=== PATIENT | female | born 1945 | race Caucasian/White ===

== ENCOUNTER → 2022-08-06 13:33 | Outpatient (CLI) | payer MEDICARE, OTHER, SELFPAY ==
--- NOTE | 2022-08-06 | DI.ECHO.S_ITS ---
[facility] +---------+ : : [address] : : : : [id number] : : : : Phone: [phone]+ Echocardiogram Report + + :Name: YAYA LANDRY Study Date: 08/06/2022 Height: 67 in : :[facility] ReadingLocation: Weight: 148 lb : : Gender: Female BSA: 1.8 m2 : :: 1945 Age: 76 yrs BP: 106/66 mmHg: :Reason For Study: DYSPNEA : :Ordering Physician: NEHA, : :KRYSTAL Performed By: Dulce Ley : :Referring: KRYSTAL SOLOMON : + + Interpretation Summary The left ventricle is normal in size and wall thickness. The ejection fraction is estimated to be 55-60%. In some of the apical views, there appears to be subtle hypokinesis of mid to distal anterior lateral wall. The right ventricle is normal in size and function. There is mild mitral regurgitation. There is mild tricuspid regurgitation. The atrial septum is aneurysmal. There is no Doppler evidence for an interatrial shunt. There is mild luminal irregularity and echogenicity in the abdominal aorta, suggestive of aortic atherosclerotic disease. Mild atherosclerotic plaque(s) in the aortic arch. Procedure: A two-dimensional transthoracic echocardiogram with color flow and Doppler was performed. The study quality was technically adequate. There is no prior echocardiogram noted for this patient. The patient was in sinus rhythm with heart rates between 57-65 bpm during the exam. Left Ventricle: The left ventricle is normal in size and wall thickness. There is no thrombus. The ejection fraction is estimated to be 55-60%. In some of the apical views, there appears to be subtle hypokinesis of mid to distal anterior lateral wall. MV E/A: 1.2 Med Peak E' Franco: 6.5 cm/sec E/E' med: 12.8. Right Ventricle: The right ventricle is normal in size and function. Atria: The left atrial size is normal. Right atrial size is normal. There is no Doppler evidence for an interatrial shunt. The atrial septum is aneurysmal. Mitral Valve: The mitral valve is normal. There is mild mitral regurgitation. Aortic Valve: The aortic valve is trileaflet. The aortic valve opens well. The aortic valve is slightly calcified. There is no aortic valve stenosis. No aortic regurgitation is present. Tricuspid Valve: The tricuspid valve is normal. There is mild tricuspid regurgitation. The right ventricular systolic pressure is estimated to be at least 26.3 mmHg based on an estimated right atrial pressure of 8 mm Hg. Pulmonic Valve: The pulmonic valve is not well seen, but is grossly normal. There is mild pulmonic regurgitation. Great Vessels: The aortic root is normal size. The dimensions of the ascending aorta are normal. There is mild luminal irregularity and echogenicity in the abdominal aorta, suggestive of aortic atherosclerotic disease. Mild atherosclerotic plaque(s) in the aortic arch. The IVC is of normal diameter and collapses less than 50% with a sniff. This suggests a right atrial pressure of 8 mm Hg. Pericardium/ Pleura There is no pericardial effusion. There is no pleural effusion. MMode/2D Measurements & Calculations LVIDd: 4.3 cm LVOT diam: 2.1 cm LVIDs: 2.7 cm Ao root diam: 3.0 cm FS: 38.7 % asc Aorta Diam: 3.2 cm IVSd: 0.74 cm Ao Arch Diam (Prox Trans): 2.5 cm LVPWd: 0.70 cm LV almonte. diameter/BSA (cm/m^2): 2.4 LV sys. diameter/BSA (cm/m^2): 1.5 LA A2 area: 16.7 cm2 RA long axis: 4.6 cm LA A4 area: 15.4 cm2 RA area: 12.7 cm2 LA length (vol): 5.1 cm RA vol: 29.9 ml LA vol: 42.3 ml RA : 16.8 ml/m2 LA vol index: 23.8 ml/m2 IVC diam: 1.5 cm RVD1 (basal): 3.0 cm RVD2 (mid): 2.2 cm TAPSE: 2.4 cm Doppler Measurements & Calculations Ao V2 max: 112.2 cm/sec LVOT Max Franco: 103.3 cm/sec Ao V2 mean: 78.9 cm/sec LV V1 max P.3 mmHg Ao max P.0 mmHg LV V1 VTI: 21.6 cm Ao mean P.8 mmHg IHSAN(I,D): 2.9 cm2 Ao V2 VTI: 25.8 cm IHSAN(V,D): 3.2 cm2 sev ratio: 0.84 IHSAN indexed to BSA (cm^2/m^2): 1.6 MV E max franco: 83.1 cm/sec TR max franco: 213.8 cm/sec MV A max franco: 66.6 cm/sec TR max P.3 mmHg MV E/A: 1.2 PA V2 max: 70.0 cm/sec Med Peak E' Franco: 6.5 cm/sec PA V2 mean: 55.3 cm/sec E/E' med: 12.8 PA mean P.3 mmHg Lat Peak E' Franco: 7.8 cm/sec PA pr(Accel): 19.1 mmHg E/E' lat: 10.7 E/e' average: 11.8 MV dec time: 0.24 sec SV(LVOT): 75.5 ml Reading Physician:04:47 PM
== END ==
PROVIDERS: PCP Family Medicine; Referring Provider Family Medicine; Visit Provider Family Medicine
DX: R06.09 Other forms of dyspnea (principal); I08.1 Rheumatic disorders of both mitral and tricuspid valves
CPT/HCPCS: 93306

== ENCOUNTER → 2022-09-17 08:16 | Outpatient (CLI) | payer MEDICARE, OTHER, SELFPAY ==
--- NOTE | 2022-09-17 | DI.CT.S_ITS ---
PROCEDURE: CT ANGIO CHEST PE PROTOCOL INDICATIONS: Atherosclerotic heart diseaseOther forms of dyspna TECHNIQUE: After the administration of intravenous contrast, 2 mm thick sections acquired from the pulmonary apices to the posterior costophrenic angles. 3-dimensional maximum intensity projection (MIP) coronal and sagittal reformats were then acquired through the thorax. For radiation dose reduction, the following was used: automated exposure control, adjustment of mA and/or kV according to patient size. COMPARISON: None. FINDINGS: Image quality: Excellent. Pulmonary arteries: Pulmonary arteries are normal in size, and demonstrate no intraluminal filling defects to suggest central pulmonary embolism. Lungs and pleura: Streaky opacity is noted in the anterior aspect of the right middle lobe. No pleural effusions or pneumothorax. Central and peripheral airways are patent. Mediastinum: Heart size is normal, without pericardial effusion. No mediastinal or hilar adenopathy. Thoracic aorta is normal in caliber and enhancement. Esophagus is normal in caliber, with small hiatal hernia. Bones and chest wall: No suspicious bony lesions. Ribs and thoracic spine appear intact throughout. Thyroid gland unremarkable. No axillary or supraclavicular adenopathy. Abdomen: Dependent gallstones are present without wall thickening. Otherwise, xisualized upper abdominal solid organs appear normal in the early arterial phase of enhancement. IMPRESSION: No pulmonary embolism. Streaky opacities in the right middle lobe possibly related to atelectasis versus scarring. Dictated by: Ruthy Mayes M.D. on 09/17/2022 at 9:03 Approved by: Ruthy Mayes M.D. on 09/17/2022 at 9:41
== END ==
PROVIDERS: PCP Family Medicine; Referring Provider Family Medicine; Visit Provider Family Medicine
DX: R06.09 Other forms of dyspnea (principal); I25.10 Atherosclerotic heart disease of native coronary artery without angina pectoris
CPT/HCPCS: 71275; Q9967

== ENCOUNTER → 2022-09-18 07:47 | Outpatient (CLI) | payer MEDICARE, OTHER, SELFPAY ==
--- NOTE | 2022-09-18 21:13 | DI.NM.S_ITS ---
DATE OF SERVICE: 09/18/2022 PROCEDURE: Exercise perfusion study. INDICATIONS: History of inferior wall STEMI, status post RCA stent, hyperlipidemia, shortness of breath, noncritical disease of LAD. RADIOPHARMACEUTICAL: 26.9 millicurie technetium-99m Myoview IV was injected at stress and 11.7 millicurie technetium-99m Myoview IV was injected at rest. CARDIAC STRESS: The patient underwent exercise perfusion study under the supervision of an attending staff. She walked on Nikhil protocol for 7 minutes and 56 seconds, achieved maximum heart rate of 128, which was 88% of target heart rate. Resting blood pressure 118/70 mmHg and peak blood pressure 155/80 mmHg. Achieved 10.1 METS of workload. SHANIQUE -49%. The patient felt fatigue. Baseline rhythm was sinus with T-wave inversion in inferior leads and V4 to V6. During exercise, there was no convincing ST depression suggestive of ischemic changes. T-wave got upright in early recovery. No significant arrhythmias. No chest pain or ischemic symptoms. RAW DATA: Breast shadow seen. There is increased subdiaphragmatic activity. Hot spot near inferior border. GATED STUDY: Resting LV ejection fraction 67% and stress LV ejection fraction 73%. I do not see any obvious wall motion abnormalities. Resting end-diastolic volume 78 mL. TID ratio 0.95, which is within normal limits. Lung/heart ratio 0.36, which is within normal limits. MYOCARDIAL PERFUSION SCAN: Stress supine, resting supine and stress prone images were compared to each other. Resting supine images revealed moderate size, moderate to severely decreased perfusion of inferior wall extending into the inferoapex, as well as distal anterior wall. Stress supine images revealed small size, mildly decreased perfusion of distal anterior wall, as well as inferoapex. During stress prone images, inferior wall, inferior apical wall, distal anterior wall, apical wall defect got normalized. The stress prone images did not reveal any significant perfusion defect. CONCLUSION: I will call this study a normal myocardial perfusion study with evidence of diaphragmatic as well as breast tissue attenuation artifact, which got resolved during stress prone images. No convincing ischemia or infarction pattern seen during stress prone images. Preserved left ventricular function. Good exercise tolerance. Functional aerobic impairment -49%. Normal hemodynamic response. No significant arrhythmias. Overall, low-risk myocardial perfusion scan. Laurie Bello - AERONAUTICS TEACHER/fn/mt doc#: [id number]/job#: [id number] dd: 09/18/2022 16:45:00 dt: 09/18/2022 20:57:00 DICTATING MD/COPIES TO: Jason Luna MD COPIES MNE: ABRAHAN;
== END ==
PROVIDERS: PCP Family Medicine; Referring Provider Family Medicine; Visit Provider Family Medicine
DX: I25.10 Atherosclerotic heart disease of native coronary artery without angina pectoris (principal); R06.09 Other forms of dyspnea; I25.2 Old myocardial infarction; E78.5 Hyperlipidemia, unspecified; R06.02 Shortness of breath; Z95.5 Presence of coronary angioplasty implant and graft
CPT/HCPCS: 78452; 93017; A9502

== ENCOUNTER → 2022-09-23 | Outpatient (CLI) | payer MEDICARE, OTHER, SELFPAY ==
--- NOTE | 2022-09-23 08:37 | DI.ECHO.S_ITS ---
[place]---------+ [facility] +---------+ : : [address] : : : : [phone] : : : : Phone: [phone]---------+ Echocardiogram Report + + :Name: YAYA LANDRY Study Date: 09/23/2022 Height: 67 in : :[facility] ReadingLocation: Weight: 146 lb : : Gender: Female BSA: 1.8 m2 : :: 1945 Age: 77 yrs BP: 121/68 mmHg: :Reason For Study: ATHEROSCLEROTIC HEART DISEASE : :Ordering Physician: NEHA, : :KRYSTAL Performed By: Dulce Ley : :Referring: THERESA MARTINEZ : + + Interpretation Summary Limited echo: The left ventricle is normal in size and wall thickness. The ejection fraction is estimated to be 55-60%. In some of the apical views, there appears to be hypokinesis of mid to distal anterolateral wall, unchanged from the previous study. No significant change in LVEF. The right ventricle is normal in size and function. There is mild tricuspid regurgitation. Compared to the prior echo exam, there has been no change in TR severity. The right ventricular systolic pressure is estimated to be at least 29 mmHg based on an estimated right atrial pressure of 3 mm Hg. Previously right atrial pressure about 8 mmHg. Procedure: Images were not obtained from all of the standard acoustic windows due to the limited scope of the study. The study quality was technically good. Comparison is made with the echocardiogram of 08/06/2022. The patient was in sinus rhythm with heart rates between 59-72 bpm during the exam. Left Ventricle: The left ventricle is normal in size and wall thickness. There is no thrombus. A false chord is noted (normal variant). The ejection fraction is estimated to be 55-60%. In some of the apical views, there appears to be hypokinesis of mid to distal anterolateral wall, unchanged from the previous study. No significant change in LVEF. Right Ventricle: The right ventricle is normal in size and function. There has been no significant change since the previous study. Tricuspid Valve: The tricuspid valve is normal. There is mild tricuspid regurgitation. The right ventricular systolic pressure is estimated to be at least 29 mmHg based on an estimated right atrial pressure of 3 mm Hg. Compared to the prior echo exam, there has been no change in TR severity. Great Vessels: The IVC is of normal diameter and collapses greater than 50% with a sniff. This suggests a low right atrial pressure of 3 mm Hg. Pericardium/ Pleura There is no pericardial effusion. There is no pleural effusion. MMode/2D Measurements & Calculations LVIDd: 4.7 cm IVC diam: 1.9 cm LVIDs: 3.4 cm FS: 26.7 % EPSS: 0.64 cm IVSd: 0.61 cm LVPWd: 0.70 cm LV almonte. diameter/BSA (cm/m^2): 2.7 LV sys. diameter/BSA (cm/m^2): 1.9 RVD1 (basal): 2.7 cm RVD2 (mid): 2.3 cm TAPSE: 2.4 cm Doppler Measurements & Calculations TR max spike: 253.2 cm/sec TR max P.7 mmHg PA pr(Accel): 36.2 mmHg Reading Physician:09:37 AM
== END ==
LOC: ECHO 08:20
PROVIDERS: PCP Family Medicine; Referring Provider Family Medicine; Visit Provider Family Medicine
DX: I07.1 Rheumatic tricuspid insufficiency (principal); I25.10 Atherosclerotic heart disease of native coronary artery without angina pectoris
CPT/HCPCS: 93307

== ENCOUNTER 2023-01-27 10:15 | Outpatient (RCR) | payer MEDICARE, OTHER, SELFPAY | END 2023-01-27 12:15 | LOC: CAR 10:15 | PROVIDERS: Referring Provider Internal Medicine Cardiovascular Disease; Visit Provider Internal Medicine Cardiovascular Disease | DX: I21.19 ST elevation (STEMI) myocardial infarction involving other coronary artery of inferior wall (principal) | CPT/HCPCS: 93798 ==

== ENCOUNTER → 2024-09-01 10:52 | Outpatient (CLI) | payer MEDICARE, OTHER, SELFPAY ==
--- NOTE | 2024-09-01 10:53 | DI.RAD.S_ITS ---
PROCEDURE: XR DEXA AXIAL SKELETON INDICATIONS: SCREENING FOR OSTEOPOROSIS COMPARISON: None. FINDINGS: Lumbar Spine: Bone mineral density 1.029 g/cm2, T score -0.2. Left Femoral Neck: Bone mineral density 0.718 g/cm2, T score -1.2. Left Hip: Bone mineral density 0.916 g/cm2, T score -0.2. Fracture Risk Calculation (when applicable): 10-year fracture risk of a major osteoporotic fracture 11 percent and of a hip fracture 2.1 percent. (T score greater or equal to -1.0 to: NORMAL) (T score from -1.1 to -2.4: OSTEOPENIA) (T score less than or equal to -2.5: OSTEOPOROSIS) IMPRESSION: Minimal osteopenia in the left femoral neck. Follow-up guidelines as follows: Osteoporosis: Consider a repeat DEXA and Vertebral Fracture Assessment (VFA) exam in 2 years or sooner if medically necessary, to reassess this patient's status. Osteopenia: Consider a repeat DEXA in 2-3 years to reassess this patient's status, or if there is a new clinical indication. Normal: Consider a repeat DEXA in 5 years or sooner, or if there is a new clinical indication. All treatment decisions require clinical judgment and consideration of individual patient factors, including patient preferences, comorbidities, previous drug use, risk factors not captured in the FRAX model (e.g., frailty, falls, vitamin D deficiency, increased bone turnover, interval significant decline in bone density ) and possible under- or over-estimation of fracture risk by FRAX. In addition, the NOF Guide recommends that FDA-approved medical therapies be considered in postmenopausal women and men age >= 50 years with a: * Hip or vertebral (clinical or morphometric) fracture * T-score of <=-2.5 at the spine or hip * Ten-year fracture probability by FRAX of >= 3% for hip fracture or >=20% for major osteoporotic fracture. Dictated by: Ruthy Mayes M.D. on 09/01/2024 at 16:04 Approved by: Ruthy Mayes M.D. on 09/01/2024 at 16:05
== END ==
PROVIDERS: PCP Family Medicine; Referring Provider Family Medicine; Visit Provider Family Medicine
DX: M85.89 Other specified disorders of bone density and structure, multiple sites (principal)
CPT/HCPCS: 77080